=== PATIENT | female | born 1995 | race Caucasian/White ===

== ENCOUNTER 2020-09-27 15:09 | Inpatient (IN) | payer OTHER ==
[2020-09-27] MEDS ORDERED: Citric Acid/Sodium Citrate Solution 30 ML Cup PO ONE (16:27)
[2020-09-27] MEDS ORDERED: Metoclopramide 10 MG/2 ML SDV IVPUSH ONE (16:27)
[2020-09-27] MEDS ORDERED: Sodium Chloride 0.9% 10 ML Syringe FLUSH PRN (16:27)
[2020-09-27] MEDS ORDERED: ceFAZolin 2 GM in Premix Bag 1 BAG IV ONE (16:27)
[2020-09-27] MEDS ORDERED: Lactated Ringers 1,000 ML IV SCH (16:30)
[2020-09-27] MEDS ORDERED: Metoclopramide 10 MG/2 ML SDV ONE (16:31)
--- NOTE | 2020-09-27 16:39 | PCM.PREANE ---
Preanesthetic Assessment - Procedure Proposed Procedure: Csection - Anesthesia/Transfusion/Family Hx Anesthesia History: Prior Anesthesia Without Reaction Family History of Anesthesia Reaction: No Transfusion History: No Prior Transfusion(s) Intubation History: Unknown - Review of Systems General: No Symptoms Pulmonary: No Symptoms Cardiovascular: No Symptoms Gastrointestinal: No Symptoms (GERD) Neurological: No Symptoms, Seizure (childhood) Other: Reports: Easy Bruising, Diabetes (1245 Blood sugar=89), Depression - Physical Assessment NPO Status Date: 09/27/20 NPO Status Time: 13:00 Vital Signs: HR: 93 Sat: 99% B/P: 116/73 Temp: 97.2 Resp: 20 Height: 1.7 m Weight: 87.09 kg ASA Class: 2E Mental Status: Alert & Oriented x3 Airway Class: Mallampati = 2 Dentition: Reports: Normal Dentition, Caries Thyro-Mental Finger Breadths: 3 Mouth Opening Finger Breadths: 3 ROM/Head Extension: Full Lungs: Clear to Auscultation, Normal Respiratory Effort Cardiovascular: Regular Rate, Regular Rhythm, No Murmurs - Allergies Allergies/Adverse Reactions: Allergies Allergy/AdvReac Type Severity Reaction Status Date / Time No Known Allergies Allergy Verified 09/27/20 15:56 - Anesthesia Plan Pre-Op Medication Ordered: None - Acknowledgements Anesthesia Type Planned: Epidural Pt an Appropriate Candidate for the Planned Anesthesia: Yes Alternatives and Risks of Anesthesia Discussed w Pt/Guardian: Yes Pt/Guardian Understands and Agrees with Anesthesia Plan: Yes PreAnesthesia Questionnaire - HOME MEDS Home Medications: Home Meds Insulin Glarg,Human.Rec.Analog [Lantus] 5 unit SUBCUT ACBREAKFAST 09/27/20 [History] Insulin Glarg,Human.Rec.Analog [Lantus] 38 unit SUBCUT BEDTIME 09/27/20 [History] Sertraline [Zoloft] 50 mg PO DAILY 09/27/20 [History] - CURRENT (IN HOUSE) MEDS Current Meds: Current Medications Lactated Ringer's (Ringers, Lactated) 1,000 mls @ 125 mls/hr IV ASDIRECTED [facility] Cefazolin Sodium/Dextrose 2 gm (/ Premix) 50 mls @ 100 mls/hr IV ONETIME ONE Stop: 09/27/20 16:56 Sodium Chloride (Sodium Chloride 0.9% 10 Ml Syringe) 10 ml FLUSH ASDIRECTED PRN PRN Reason: Keep Vein Open Discontinued Medications Citric Acid/Sodium Citrate (Citric Acid/Sodium Citrate Solution 30 Ml Cup) 30 ml PO ONETIME ONE Stop: 09/27/20 16:28 Metoclopramide HCl (Metoclopramide 10 Mg/2 Ml Sdv) 10 mg IVPUSH ONETIME ONE Stop: 09/27/20 16:28 Metoclopramide HCl (Metoclopramide 10 Mg/2 Ml Sdv) Confirm Administered Dose 10 mg .ROUTE .STK-MED ONE Stop: 09/27/20 16:32
[2020-09-27] MEDS ORDERED: Morphine PF 10 MG/10 ML SDV ONE (16:48)
[2020-09-27] MEDS ORDERED: Lactated Ringers 2,000 ML ONE (16:48)
[2020-09-27] MEDS ORDERED: Ondansetron 4 MG/2 ML SDV ONE (16:48)
[2020-09-27] MEDS ORDERED: Ketorolac 30 MG/ML SDV ONE (16:48)
[2020-09-27] MEDS ORDERED: Oxytocin 10 Units/1 ML SDV ONE (16:48)
[2020-09-27] MEDS ORDERED: ceFAZolin 1 GM Vial ONE (16:48)
[2020-09-27] MEDS ORDERED: HYDROmorphone 0.5 MG/0.5 ML Syringe IVPUSH PRN (16:58)
[2020-09-27] MEDS ORDERED: ePHEDrine 50 MG/ML SDV IVPUSH PRN ×2 (16:58→20:21)
[2020-09-27] MEDS ORDERED: Ondansetron 4 MG/2 ML SDV IVPUSH PRN (16:58)
[2020-09-27] MEDS ORDERED: diphenhydrAMINE 50 MG/ML SDV IVPUSH PRN ×2 (16:58→20:21)
[2020-09-27] MEDS ORDERED: fentaNYL 100 MCG/2 ML SDV IVPUSH PRN (16:58)
[2020-09-27] MEDS ORDERED: Bupivacaine 0.5% 30 ML SDV ONE (17:15)
--- NOTE | 2020-09-27 17:49 | US ---
Biophysical profile: Multiple real-time images were obtained transabdominally. Comparison: No previous study. Dates: Working JIMBO: 10/24/20, gestational age 36 weeks 1 day Current ultrasound: JIMBO 10/16/20, gestational age 37 weeks 2 days presentation: Cephalic Placenta: Not imaged Amniotic fluid: 9.98 cm Measurements: BPD: 9.06 cm - 36 weeks 5 days Head circumference: 33.31 cm - 38 weeks 0 days Abdominal circumference: 37.55 cm - 37 weeks 3 days Femur length: 7.16 cm - 36 weeks 5 days Estimated weight: 3158 g (6 lbs. 15 oz.), estimated weight at the 81st percentile for age by working JIMBO Heart rate: 144 bpm Cervical length: Not well visualized Biophysical profile: movement 0, breathing movement 0, tone 0, amniotic fluid volume 2 Impression: 1. Single intrauterine fetus currently cephalic in presentation. Dates as noted above. 2. 2 out of 8 on biophysical profile. Diagnostic code #5
--- NOTE | 2020-09-27 18:09 | PCM.POSTAN ---
POST ANESTHESIA ASSESSMENT - MENTAL STATUS Mental Status: Alert - VITAL SIGNS Vital Signs: HR: 78 Sat: 100% Temp: 98.5 Resp: 19 B/P: 115/84 @ 1800 - RESPIRATORY Respiratory Status: Respiratory Rate WNL, Airway Patent, O2 Saturation Stable - CARDIOVASCULAR CV Status: Pulse Rate WNL, Blood Pressure Stable - GASTROINTESTINAL GI Status: No Symptoms - POST OP HYDRATION Hydration Status: Adequate & Stable
--- NOTE | 2020-09-27 19:14 | PCM.LDHP ---
L&D History of Present Illness - General Date of Service: 09/27/20 Admit Problem/Dx: Patient Status Order with Admit Dx/Problem 09/27/20 15:50 Patient Status [ADT] Routine 09/27/20 16:27 Patient Status [ADT] Routine Admission Diagnosis/Problem Admission Diagnosis/Problem 09/27/20 19:09 Renetta is a 3 para 1-0-1-1 female with a 36-week intrauterine admitted for, nonreassuring heart tones per NST done at [facility]. Her present is complicated by a baby with a ventricular septal defect and the patient has a diagnosis of history of 2 diabetes on insulin. 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 A biophysical profile done in labor and delivery showed a score of 2/10. 09/27/20 19:27 Source of Information: Patient History Limitations: Reports: No Limitations - History of Present Illness Introduction:: Renetta is a 3 para 1-0-1-1 female with a 36-week intrauterine admitted for, nonreassuring heart tones per NST done at [facility]. Her present is complicated by a baby with a ventricular septal defect and the patient has a diagnosis of history of 2 diabetes on insulin. 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 A biophysical profile done in labor and delivery showed a score of 2/10. Immediate telephone consultation with maternal- medicine concerning the baby's VSD and MFM recommendation for delivery in [place] indicated that the plan for delivery in [place] was for early echocardiography on the baby and that no problems at the time of were not anticipated. The decision was made to do an emergent section. The procedure, risk, benefits were discussed in detail with the patient. She appeared to understand and wished to proceed. course: Patient was seen initially for this at 7 weeks gestational age. Ultrasound was done early and her dates were determined by a certain last menstrual period starting on 01/18/2020. This is supported by at least 2 ultrasounds. course was relatively unremarkable. Her care was provided in conjunction with maternal- medicineDr. Perez at [facility] in [place]. She made approximately a 29 pound weight gain during the course the . Her vital signs remained stable throughout the and her fundal height growth was appropriate. Patient was on sertraline 50 mg p.o. daily for anxiety. laboratory testing showed blood to be a positive with a negative antibody screen. First hemoglobin was 13.4 and platelets are 179,000. Rubella titer showed positive results. Her syphilis IgG and IgM interpretation was nonreactive. Hepatitis B surface antigen was nonreactive Chlamydia and gonorrhea were not detected. Second trimester hemoglobin was 11.9 g/dL and platelets are 169,000. Her 1 hour glucose was 262 and the diagnosis of type 2 diabetes was made. Patient was started on dietary modification and eventually is on medication including Lantus 36 units nightly and 5 units in the morning followed by insulin lispro (Humalog) insulin 6 units with lunch and 8 units with supper. In the a.m. Her a.m. blood sugars returned less than optimal but other blood sugars were reasonably well controlled. A group B strep screen was negative. genetic screen was negative for trisomy 21, 18 and 13. Allergies: None Medications: 1. Insulin lispro as above 2. Lantus insulin as above 3. Sertraline 50 mg p.o. daily for anxiety 4. vitamins daily Past medical history: 1. Type 2 diabetes complicating Surgical history: Tonsillectomy Family history: Mother and father are alive and well. 1 brother alive and well. Son with seizure disorder felt to be febrile seizures. No anesthesia, bleeding, blood clotting problems noted in the family. Social history: Patient's significant other is Chan. She lives in [place]. She works outside the home. She does not use any significant also alcohol, drugs or tobacco. Review of systems: Patient's main concern at this time is that she is not feeling the baby move. No other pains, evidence of rupture membranes or other problems noted.. Skin: Negative Lungs: No infectious symptoms or shortness of breath Cardiovascular: No chest pain or exercise intolerance GI: Negative : Negative Musculoskeletal: Negative Neurological: Negative In general the patient is well-developed, well-nourished, pleasant female of stated age in no acute distress. Skin is warm dry without lesions. HEENT, neck and back within normal limits. Lungs are clear with good breath sounds in all lung lopez. Cardiovascular exam shows regular and rhythm without murmurs. Abdomen is gravid with fundal height consistent with term . Genital exam was not performed Extremities and neurological exam are grossly within normal limits. - Related Data Allergies/Adverse Reactions: Allergies Allergy/AdvReac Type Severity Reaction Status Date / Time No Known Allergies Allergy Verified 09/27/20 15:56 Home Medications: Home Meds Insulin Glarg,Human.Rec.Analog [Lantus] 5 unit SUBCUT ACBREAKFAST 09/27/20 [History] Insulin Glarg,Human.Rec.Analog [Lantus] 38 unit SUBCUT BEDTIME 09/27/20 [History] Sertraline [Zoloft] 50 mg PO DAILY 09/27/20 [History] H&P Review of Systems - Review of Systems: Review Of Systems: See Below L&D Exam - Exam Exam: See Below - Vital Signs Vital Signs: Last Vital Signs Temp 36.9 C 09/27/20 18:00 Pulse 78 09/27/20 18:00 Resp 17 09/27/20 18:45 BP 120/78 09/27/20 18:45 Pulse Ox 98 09/27/20 18:45 Weight: 87.09 kg - Patient Data Lab Results Last 24 hrs: Laboratory Results - last 24 hr 09/27/20 09/27/20 09/27/20 Range/Units 16:37 16:37 16:43 WBC (3.98-10.04) K/mm3 RBC (3.98-5.22) M/mm3 Hgb (11.2-15.7) gm/dl Hct (34.1-44.9) % MCV (79.4-94.8) fl MCH (25.6-32.2) pg MCHC (32.2-35.5) g/dl RDW Std Deviation (36.4-46.3) fL Plt Count (182-369) K/mm3 MPV (9.4-12.3) fl Neut % (Auto) (34.0-71.1) % Lymph % (Auto) (19.3-51.7) % Rooks % (Auto) (4.7-12.5) % Eos % (Auto) (0.7-5.8) Baso % (Auto) (0.1-1.2) % Neut # (Auto) (1.56-6.13) K/mm3 Lymph # (Auto) (1.18-3.74) K/mm3 Rooks # (Auto) (0.24-0.36) K/mm3 Eos # (Auto) (0.04-0.36) K/mm3 Baso # (Auto) (0.01-0.08) K/mm3 Sodium (136-145) mEq/L Potassium (3.5-5.1) mEq/L Chloride (98-107) mEq/L Carbon Dioxide (21-32) mEq/L Anion Gap (5-15) BUN (7-18) mg/dL Creatinine (0.55-1.02) mg/dL Est Cr Clr Drug Dosing mL/min Estimated GFR (MDRD) (>60) mL/min BUN/Creatinine Ratio (14-18) Glucose (74-106) mg/dL Calcium (8.5-10.1) mg/dL Total Bilirubin (0.2-1.0) mg/dL AST (15-37) U/L ALT (14-59) U/L Alkaline Phosphatase (46-116) U/L Total Protein (6.4-8.2) g/dl Albumin (3.4-5.0) g/dl Globulin gm/dL Albumin/Globulin Ratio (1-2) SARS-CoV-2 RNA (CAMELIA) Negative (NEGATIVE) SARS CoV-2 RNA Rapid CAMELIA Negative (NEGATIVE) Blood Type A POSITIVE Gel Antibody Screen Negative 09/27/20 09/27/20 Range/Units 16:43 16:43 WBC 6.56 (3.98-10.04) K/mm3 RBC 4.11 (3.98-5.22) M/mm3 Hgb 10.6 L (11.2-15.7) gm/dl Hct 34.1 (34.1-44.9) % MCV 83.0 (79.4-94.8) fl MCH 25.8 (25.6-32.2) pg MCHC 31.1 L (32.2-35.5) g/dl RDW Std Deviation 41.1 (36.4-46.3) fL Plt Count 138 L (182-369) K/mm3 MPV 11.6 (9.4-12.3) fl Neut % (Auto) 65.5 (34.0-71.1) % Lymph % (Auto) 25.9 (19.3-51.7) % Rooks % (Auto) 7.3 (4.7-12.5) % Eos % (Auto) 0.5 L (0.7-5.8) Baso % (Auto) 0.3 (0.1-1.2) % Neut # (Auto) 4.30 (1.56-6.13) K/mm3 Lymph # (Auto) 1.70 (1.18-3.74) K/mm3 Rooks # (Auto) 0.48 H (0.24-0.36) K/mm3 Eos # (Auto) 0.03 L (0.04-0.36) K/mm3 Baso # (Auto) 0.02 (0.01-0.08) K/mm3 Sodium 141 (136-145) mEq/L Potassium 3.7 (3.5-5.1) mEq/L Chloride 105 (98-107) mEq/L Carbon Dioxide 23 (21-32) mEq/L Anion Gap 16.7 H (5-15) BUN 9 (7-18) mg/dL Creatinine 0.5 L (0.55-1.02) mg/dL Est Cr Clr Drug Dosing 165.81 mL/min Estimated GFR (MDRD) > 60 (>60) mL/min BUN/Creatinine Ratio 18.0 (14-18) Glucose 116 H (74-106) mg/dL Calcium 8.4 L (8.5-10.1) mg/dL Total Bilirubin 0.2 (0.2-1.0) mg/dL AST 31 (15-37) U/L ALT 32 (14-59) U/L Alkaline Phosphatase 138 H (46-116) U/L Total Protein 6.3 L (6.4-8.2) g/dl Albumin 2.5 L (3.4-5.0) g/dl Globulin 3.8 gm/dL Albumin/Globulin Ratio 0.7 L (1-2) SARS-CoV-2 RNA (CAMELIA) (NEGATIVE) SARS CoV-2 RNA Rapid CAMELIA (NEGATIVE) Blood Type Gel Antibody Screen Result Diagrams: 09/27/20 16:43 09/27/20 16:43 Problem List Initiated/Reviewed/Updated: Yes Orders Last 24hrs: Active Orders 24 hr Category Date Time Status Patient Status Manage Transfer [TRANSFER] Routine ADT 09/27/20 18:01 Active Patient Status [ADT] Routine ADT 09/27/20 16:27 Active Communication Order [RC] ASDIRECTED Care 09/27/20 16:58 Active Communication Order [RC] ROUTINE Care 09/27/20 16:27 Active Non Stress Test [RC] PER UNIT ROUTINE Care 09/27/20 15:50 Active Notify Provider [RC] ASDIRECTED Care 09/27/20 16:58 Active Oxygen Therapy [RC] ASDIRECTED Care 09/27/20 16:58 Active Peripheral IV Care [RC] . DIRECTED Care 09/27/20 16:28 Active Procedure Site Prep Instruct [RC] ASDIRECTED Care 09/27/20 16:27 Active Pulse Oximetry [RC] ASDIRECTED Care 09/27/20 16:58 Active Verify Patient Consent Obtain [RC] PER UNIT ROUTINE Care 09/27/20 16:27 Active Vital Signs [RC] PER UNIT ROUTINE Care 09/27/20 15:50 Active Vital Signs [RC] PFP Care 09/27/20 16:27 Active Vital Signs [RC] Q1H Care 09/27/20 16:58 Active HEP C VIRUS AB [REF] Routine Lab 09/27/20 16:43 Received HEPATITIS C ANTIBODY [CHEM] Stat Lab 09/27/20 16:38 Ordered PATIENT RETYPE [BBK] Routine Lab 09/27/20 18:34 Ordered RAPID PLASMA REAGIN,RPR [CHEM] Routine Lab 09/27/20 16:43 Received HYDROmorphone [Dilaudid] Med 09/27/20 16:58 Active 0.5 mg IVPUSH Q10M PRN Lactated Ringers [Ringers, Lactated] 1,000 ml Med 09/27/20 16:30 Active IV ASDIRECTED Ondansetron [Zofran] Med 09/27/20 16:58 Active 4 mg IVPUSH ONETIME PRN Phenylephrine HCl In 0.9% NaCl [Phenylephrine 1 MG/10 Med 09/27/20 16:58 Activ e ML-NS] 0.1 mg IVPUSH Q10M PRN Sertraline [Zoloft] Med 09/28/20 09:00 Active 50 mg PO DAILY Sodium Chloride 0.9% [Saline Flush] Med 09/27/20 16:27 Active 10 ml FLUSH ASDIRECTED PRN diphenhydrAMINE [Benadryl] Med 09/27/20 16:58 Active 25 mg IVPUSH Q6H PRN ePHEDrine [ePHEDrine sulfate] Med 09/27/20 16:58 Active 5 mg IVPUSH ASDIRECTED PRN fentaNYL [Sublimaze] Med 09/27/20 16:58 Active 50 mcg IVPUSH Q20M PRN Peripheral IV Insertion Adult [OM.PC] Routine Oth 09/27/20 16:27 Ordered Pulse Oximetry Continuous Monitoring [OM.PC] Routine Oth 09/27/20 16:58 Active Schedule Procedure [COMM] Per Unit Routine Oth 09/27/20 16:27 Ordered Resuscitation Status Routine Resus Stat 09/27/20 15:49 Ordered Medication Orders Diphenhydramine HCl (Diphenhydramine 50 Mg/Ml Sdv) 25 mg IVPUSH Q6H PRN PRN Reason: pruritis Stop: 09/27/20 19:30 Ephedrine Sulfate (Ephedrine 50 Mg/Ml Sdv) 5 mg IVPUSH ASDIRECTED PRN PRN Reason: Hypotension Stop: 09/27/20 19:30 Fentanyl (Fentanyl 100 Mcg/2 Ml Sdv) 50 mcg IVPUSH Q20M PRN PRN Reason: Pain Stop: 09/27/20 19:30 Hydromorphone HCl (Hydromorphone 0.5 Mg/0.5 Ml Syringe) 0.5 mg IVPUSH Q10M PRN PRN Reason: Pain (severe 7-10) Stop: 09/27/20 19:30 Lactated Ringer's (Ringers, Lactated) 1,000 mls @ 125 mls/hr IV ASDIRECTED EDY Miscellaneous Medication (Phenylephrine Hcl In 0.9% Nacl 1 Mg/10 Ml Syringe) 0.1 mg IVPUSH Q10M PRN PRN Reason: Hypotension Stop: 09/27/20 19:30 Ondansetron HCl (Ondansetron 4 Mg/2 Ml Sdv) 4 mg IVPUSH ONETIME PRN PRN Reason: Nausea/Vomiting Stop: 09/27/20 19:30 Sertraline HCl (Sertraline 50 Mg Tab) 50 mg PO DAILY EDY Sodium Chloride (Sodium Chloride 0.9% 10 Ml Syringe) 10 ml FLUSH ASDIRECTED PRN PRN Reason: Keep Vein Open Assessment/Plan Comment:: 1. 36-week , nonreassuring heart tones-biophysical profile score 2/10-need for emergent delivery 2. Type 2 diabetes on insulin-fasting blood sugars not well controlled 3. Baby with ventricular septal defectrecommendation was for delivery in [place] to allow for echocardiography to be done shortly after delivery 4. Generally healthy female otherwise. Plan: 1. Emergent sectionprocedure, risk, benefits, potential implications of delaying delivery are all discussed in detail with patient. She appears understand and wishes to proceed. Consent is signed. 2. Laboratory testing consist of CBC, CMP with blood sugar, type and screen, Covid19 testing, RPR. 3. DVT prophylaxis with SCDs 4. Ancef 2 g IV preop for infection prophylaxis 5. PediatricsDrArianna Alcala to be present for delivery 6. Will continue with Lantus 20 units subcu nightly after delivery and monitor blood sugars closely.
--- NOTE | 2020-09-27 19:36 | PCM.OPNOTE ---
- General Post-Op/Procedure Note Date of Surgery/Procedure: 09/27/20 Operative Procedure(s): Primary low uterine segment transverse section through Pfannenstiel skin incision Findings: The baby was found to be in vertex presentation. Uterus, tubes ovaries appeared to be normal for term . Amniotic fluid was clear. Approximately 2000 cc of amniotic fluid was removed consistent with hydramnios. Baby was in vertex presentation. Umbilical cord had 3 vessels. Placenta was fundal and anterior and minimally adherent. Cervix was found to be 3 cm dilated. Baby weighed 3480 g (7 pounds 11 ounces), had Apgars of 6 and 9 and was a male infant. The baby was born at 1720 hrs. on 09/27/2022. Anesthesia Technique: Spinal Other Anesthesia Type: Marcaine 0.5% - 20 cc local Primary Surgeon: Julio Cunningham Secondary Surgeon: Jon Tomas Anesthesia Provider: Odette Maza Evening Sitter: Maggi Saavedra Role of Evening Sitter: Retraction, assistance, patient safety, quality of care. Fluid Replacement, Intraop: 1,100 Output, Urine Amount: 125 EBL in mLs: 1,000 Drain/Tube Comments:: Indwelling bladder catheter Complications: None Condition: Good Free Text/Narrative:: Intake & Output 09/27/20 09/27/20 09/27/20 06:59 14:59 22:59 Intake Total 800 Output Total 185 Balance 615 Surgery duration: 40 minutes Procedure: The patient is appropriately consented. Patient was transferred to the room and placed in a sitting position. Spinal anesthesia was administered. After confirmation of adequate anesthesia patient was placed in a supine position with a wedge under her right side to facilitate left lateral positioning. The patient was prepped and draped in usual fashion after Vazquez catheter was already placed . The anesthetic was checked and found to be adequate. 20 mL of Marcaine 0.5% was injected locally in the Pfannenstiel incision site. The Pfannenstiel skin incision was then made and carried down through skin, subcutaneous and fascial layers. The fascia was then undermined superiorly and inferiorly to allow for adequate operating room. The recti muscles midline and preperitoneal fat was bluntly dissected. Peritoneal cavity was entered longitudinally. The vesicouterine peritoneum was then incised transversely and bladder flap was developed. Myometrium was incised transversely to the level of the amniotic sac. This incision was extended bilaterally in a blunt fashion. The amniotic sac was then ruptured resulting in clear amniotic fluid. A hand is placed in the low uterine segment and the baby's head was brought forth through the incision. The baby was completely delivered using fundal pressure in a routine fashion. The nose and mouth were bulb suctioned. Baby's cord was clamped x2 cut and baby was handed off to attending medical language specialist Dr. Alcala. Placenta was expressed after cord blood was obtained. Uterus was then exteriorized to allow for easier closure. The cervix was assessed and found to be dilated adequately to allow egress of blood. The uterus was closed in 2 layers. The first layer a running locked suture of 0 Monocryl, the second layer a running locked vertical mattress suture of 0 Monocryl. Tahluz-by-[id number] suture was placed at the end of the incision to control 1 bleeder. Cautery was used to control small peritoneal bleeders. Hemostasis was then confirmed. Sponge instrument needle counts are correct. The uterus was returned to the abdominal cavity and lateral gutters were cleared of blood. Once again sponge needle counts are correct. The anterior abdominal wall was closed with a #1 PDS suture from angle to angle. The subcutaneous area was found to be free of any bleeders. interrupted sutures of 3-0 Monocryl were used to reapproxi mate the subcutaneous layer.Skin was closed with a running subcuticular stitch of 3-0 Monocryl in a vertical mattress suture fashion using a Roberto Carlos needle. Prineo mesh/glue was then applied to further approximate the incision. It should be noted that patient received 2 g of Ancef preoperatively for infection prophylaxis and had Pitocin infused after delivery of the placenta to facilitate uterine contraction. She also had sequential compression stockings in place for DVT prophylaxis. Patient was discharged from the operating room in satisfactory condition.
[2020-09-27] MEDS ORDERED: Naloxone 0.4 MG/ML SDV IVPUSH PRN (20:21)
[2020-09-27] MEDS ORDERED: Dextrose 5%-Lactated Ringers 1,000 ML IV SCH (20:21)
[2020-09-27] MEDS ORDERED: Acetaminophen/oxyCODONE 325-5 MG Tab PO PRN ×2 (20:21)
[2020-09-27] MEDS ORDERED: Insulin Glarg,Human.Rec.Analog 100 Unit/ML SUBCUT SCH (21:00)
[2020-09-27] MEDS ORDERED: Simethicone 80 MG Tab.Chew PO SCH (22:00)
[2020-09-27] MEDS: Insulin Glarg,Human.Rec.Analog 100 Unit/ML SUBCUT SCH (23:42)
[2020-09-27] MEDS: Ibuprofen 800 MG Tab PO SCH (23:48)
[2020-09-28] MEDS: Ibuprofen 800 MG Tab PO SCH ×3 (06:51→23:12)
[2020-09-28] MEDS ORDERED: Sertraline 50 MG Tab PO SCH ×2 (09:00)
[2020-09-28] MEDS ORDERED: Prenatal Multivitamin with Calcium/Folic Acid/Iron Tab PO SCH (09:00)
[2020-09-28] MEDS: Docusate Sodium 100 MG Cap PO PRN ×2 (09:07→23:12)
--- NOTE | 2020-09-28 10:18 | PCM.PNPP ---
- General Info Date of Service: 09/28/20 Subjective Update: Doing well. Eager to get to [place]. Hasn't been up and out of bed more than once to void however. Functional Status: Reports: Pain Controlled - Review of Systems General: Reports: No Symptoms HEENT: Reports: No Symptoms Pulmonary: Reports: No Symptoms Cardiovascular: Reports: No Symptoms Gastrointestinal: Reports: No Symptoms Genitourinary: Reports: No Symptoms Musculoskeletal: Reports: No Symptoms Skin: Reports: No Symptoms Neurological: Reports: No Symptoms Psychiatric: Reports: No Symptoms - General Info Date of Service: 09/28/20 - Patient Data Vital Signs - Most Recent: Last Vital Signs Temp 37.1 C 09/28/20 07:47 Pulse 85 09/28/20 07:47 Resp 16 09/28/20 07:47 BP 109/63 09/28/20 07:47 Pulse Ox 98 09/28/20 07:47 Weight - Most Recent: 87.09 kg I&O - Last 24 Hours: Intake & Output 09/27/20 09/28/20 09/28/20 22:59 06:59 14:59 Intake Total 1900 1000 Output Total 960 2500 450 Balance 940 -1500 -450 Lab Results - Last 24 Hours: Laboratory Results - last 24 hr 09/27/20 09/27/20 09/27/20 Range/Units 16:37 16:37 16:43 WBC (3.98-10.04) K/mm3 RBC (3.98-5.22) M/mm3 Hgb (11.2-15.7) gm/dl Hct (34.1-44.9) % MCV (79.4-94.8) fl MCH (25.6-32.2) pg MCHC (32.2-35.5) g/dl RDW Std Deviation (36.4-46.3) fL Plt Count (182-369) K/mm3 MPV (9.4-12.3) fl Neut % (Auto) (34.0-71.1) % Lymph % (Auto) (19.3-51.7) % [place] % (Auto) (4.7-12.5) % Eos % (Auto) (0.7-5.8) Baso % (Auto) (0.1-1.2) % Neut # (Auto) (1.56-6.13) K/mm3 Lymph # (Auto) (1.18-3.74) K/mm3 [place] # (Auto) (0.24-0.36) K/mm3 Eos # (Auto) (0.04-0.36) K/mm3 Baso # (Auto) (0.01-0.08) K/mm3 Sodium (136-145) mEq/L Potassium (3.5-5.1) mEq/L Chloride (98-107) mEq/L Carbon Dioxide (21-32) mEq/L Anion Gap (5-15) BUN (7-18) mg/dL Creatinine (0.55-1.02) mg/dL Est Cr Clr Drug Dosing mL/min Estimated GFR (MDRD) (>60) mL/min BUN/Creatinine Ratio (14-18) Glucose (74-106) mg/dL POC Glucose (70-105) mg/dL Calcium (8.5-10.1) mg/dL Total Bilirubin (0.2-1.0) mg/dL AST (15-37) U/L ALT (14-59) U/L Alkaline Phosphatase (46-116) U/L Total Protein (6.4-8.2) g/dl Albumin (3.4-5.0) g/dl Globulin gm/dL Albumin/Globulin Ratio (1-2) RPR Non-reactive (NONREACTIVE) SARS-CoV-2 RNA ([place]) Negative (NEGATIVE) SARS CoV-2 RNA Rapid [place] Negative (NEGATIVE) Blood Type Gel Antibody Screen 09/27/20 09/27/20 09/27/20 Range/Units 16:43 16:43 16:43 WBC 6.56 (3.98-10.04) K/mm3 RBC 4.11 (3.98-5.22) M/mm3 Hgb 10.6 L (11.2-15.7) gm/dl Hct 34.1 (34.1-44.9) % MCV 83.0 (79.4-94.8) fl MCH 25.8 (25.6-32.2) pg MCHC 31.1 L (32.2-35.5) g/dl RDW Std Deviation 41.1 (36.4-46.3) fL Plt Count 138 L (182-369) K/mm3 MPV 11.6 (9.4-12.3) fl Neut % (Auto) 65.5 (34.0-71.1) % Lymph % (Auto) 25.9 (19.3-51.7) % [place] % (Auto) 7.3 (4.7-12.5) % Eos % (Auto) 0.5 L (0.7-5.8) Baso % (Auto) 0.3 (0.1-1.2) % Neut # (Auto) 4.30 (1.56-6.13) K/mm3 Lymph # (Auto) 1.70 (1.18-3.74) K/mm3 [place] # (Auto) 0.48 H (0.24-0.36) K/mm3 Eos # (Auto) 0.03 L (0.04-0.36) K/mm3 Baso # (Auto) 0.02 (0.01-0.08) K/mm3 Sodium 141 (136-145) mEq/L Potassium 3.7 (3.5-5.1) mEq/L Chloride 105 (98-107) mEq/L Carbon Dioxide 23 (21-32) mEq/L Anion Gap 16.7 H (5-15) BUN 9 (7-18) mg/dL Creatinine 0.5 L (0.55-1.02) mg/dL Est Cr Clr Drug Dosing 165.81 mL/min Estimated GFR (MDRD) > 60 (>60) mL/min BUN/Creatinine Ratio 18.0 (14-18) Glucose 116 H (74-106) mg/dL POC Glucose (70-105) mg/dL Calcium 8.4 L (8.5-10.1) mg/dL Total Bilirubin 0.2 (0.2-1.0) mg/dL AST 31 (15-37) U/L ALT 32 (14-59) U/L Alkaline Phosphatase 138 H (46-116) U/L Total Protein 6.3 L (6.4-8.2) g/dl Albumin 2.5 L (3.4-5.0) g/dl Globulin 3.8 gm/dL Albumin/Globulin Ratio 0.7 L (1-2) RPR (NONREACTIVE) SARS-CoV-2 RNA ([place]) (NEGATIVE) SARS CoV-2 RNA Rapid [place] (NEGATIVE) Blood Type A POSITIVE Gel Antibody Screen Negative 09/27/20 09/27/20 09/28/20 Range/Units 21:56 23:34 06:32 WBC 6.77 (3.98-10.04) K/mm3 RBC 3.69 L (3.98-5.22) M/mm3 Hgb 9.3 L (11.2-15.7) gm/dl Hct 30.8 L (34.1-44.9) % MCV 83.5 (79.4-94.8) fl MCH 25.2 L (25.6-32.2) pg MCHC 30.2 L (32.2-35.5) g/dl RDW Std Deviation 41.3 (36.4-46.3) fL Plt Count 133 L (182-369) K/mm3 MPV 12.2 (9.4-12.3) fl Neut % (Auto) 71.8 H (34.0-71.1) % Lymph % (Auto) 20.1 (19.3-51.7) % [place] % (Auto) 7.2 (4.7-12.5) % Eos % (Auto) 0.3 L (0.7-5.8) Baso % (Auto) 0.3 (0.1-1.2) % Neut # (Auto) 4.86 (1.56-6.13) K/mm3 Lymph # (Auto) 1.36 (1.18-3.74) K/mm3 [place] # (Auto) 0.49 H (0.24-0.36) K/mm3 Eos # (Auto) 0.02 L (0.04-0.36) K/mm3 Baso # (Auto) 0.02 (0.01-0.08) K/mm3 Sodium (136-145) mEq/L Potassium (3.5-5.1) mEq/L Chloride (98-107) mEq/L Carbon Dioxide (21-32) mEq/L Anion Gap (5-15) BUN (7-18) mg/dL Creatinine (0.55-1.02) mg/dL Est Cr Clr Drug Dosing mL/min Estimated GFR (MDRD) (>60) mL/min BUN/Creatinine Ratio (14-18) Glucose (74-106) mg/dL POC Glucose 91 124 H (70-105) mg/dL Calcium (8.5-10.1) mg/dL Total Bilirubin (0.2-1.0) mg/dL AST (15-37) U/L ALT (14-59) U/L Alkaline Phosphatase (46-116) U/L Total Protein (6.4-8.2) g/dl Albumin (3.4-5.0) g/dl Globulin gm/dL Albumin/Globulin Ratio (1-2) RPR (NONREACTIVE) SARS-CoV-2 RNA ([place]) (NEGATIVE) SARS CoV-2 RNA Rapid [place] (NEGATIVE) Blood Type Gel Antibody Screen 09/28/20 Range/Units 07:36 WBC (3.98-10.04) K/mm3 RBC (3.98-5.22) M/mm3 Hgb (11.2-15.7) gm/dl Hct (34.1-44.9) % MCV (79.4-94.8) fl MCH (25.6-32.2) pg MCHC (32.2-35.5) g/dl RDW Std Deviation (36.4-46.3) fL Plt Count (182-369) K/mm3 MPV (9.4-12.3) fl Neut % (Auto) (34.0-71.1) % Lymph % (Auto) (19.3-51.7) % [place] % (Auto) (4.7-12.5) % Eos % (Auto) (0.7-5.8) Baso % (Auto) (0.1-1.2) % Neut # (Auto) (1.56-6.13) K/mm3 Lymph # (Auto) (1.18-3.74) K/mm3 [place] # (Auto) (0.24-0.36) K/mm3 Eos # (Auto) (0.04-0.36) K/mm3 Baso # (Auto) (0.01-0.08) K/mm3 Sodium (136-145) mEq/L Potassium (3.5-5.1) mEq/L Chloride (98-107) mEq/L Carbon Dioxide (21-32) mEq/L Anion Gap (5-15) BUN (7-18) mg/dL Creatinine (0.55-1.02) mg/dL Est Cr Clr Drug Dosing mL/min Estimated GFR (MDRD) (>60) mL/min BUN/Creatinine Ratio (14-18) Glucose (74-106) mg/dL POC Glucose 91 (70-105) mg/dL Calcium (8.5-10.1) mg/dL Total Bilirubin (0.2-1.0) mg/dL AST (15-37) U/L ALT (14-59) U/L Alkaline Phosphatase (46-116) U/L Total Protein (6.4-8.2) g/dl Albumin (3.4-5.0) g/dl Globulin gm/dL Albumin/Globulin Ratio (1-2) RPR (NONREACTIVE) SARS-CoV-2 RNA ([place]) (NEGATIVE) SARS CoV-2 RNA Rapid [place] (NEGATIVE) Blood Type Gel Antibody Screen Med Orders - Current: Current Medications Diphenhydramine HCl (Diphenhydramine 50 Mg/Ml Sdv) 25 mg IVPUSH Q6H PRN PRN Reason: Itching or Nausea Last Admin: 09/28/20 02:27 Dose: 25 mg Documented by: Docusate Sodium (Docusate Sodium 100 Mg Cap) 100 mg PO Q12H PRN PRN Reason: Constipation Last Admin: 09/28/20 09:07 Dose: 100 mg Documented by: Ephedrine Sulfate (Ephedrine 50 Mg/Ml Sdv) 5 mg IVPUSH SEECOMMENT PRN PRN Reason: Other Ibuprofen (Ibuprofen 800 Mg Tab) 800 mg PO Q8H [facility] Last Admin: 09/28/20 06:51 Dose: 800 mg Documented by: Insulin Glargine (Insulin Glarg,Human.Rec.Analog 100 Unit/Ml) 20 unit SUBCUT BEDTIME [facility] Last Admin: 09/27/20 23:42 Dose: 20 units Documented by: Naloxone HCl (Naloxone 0.4 Mg/Ml Sdv) 0.1 mg IVPUSH SEECOMMENT PRN PRN Reason: Respiratory Depression Oxycodone/Acetaminophen (Acetaminophen/Oxycodone 325-5 Mg Tab) 1 tab PO Q4H PRN PRN Reason: Pain (moderate 4-6) Oxycodone/Acetaminophen (Acetaminophen/Oxycodone 325-5 Mg Tab) 2 tab PO Q4H PRN PRN Reason: Pain (severe 7-10) Prenat Multivit/Textile Machinery Instructor/Iron/Folic Ac ( Multivitamin With Calcium/Folic Acid/Iron Tab) 1 each PO DAILY [facility] Last Admin: 09/28/20 09:07 Dose: 1 each Documented by: Sertraline HCl (Sertraline 50 Mg Tab) 50 mg PO DAILY [facility] Last Admin: 09/28/20 09:07 Dose: 50 mg Documented by: Simethicone (Simethicone 80 Mg Tab.Chew) 80 mg PO WITHMEALSANDBED [facility] Discontinued Medications Bupivacaine HCl (Bupivacaine 0.5% 30 Ml Sdv) Confirm Administered Dose 30 ml .ROUTE .STK-MED ONE Stop: 09/27/20 17:16 Last Admin: 09/27/20 17:16 Dose: 20 ml Documented by: Cefazolin Sodium (Cefazolin 1 Gm Vial) Confirm Administered Dose 2 gm .ROUTE .STK-MED ONE Stop: 09/27/20 16:49 Citric Acid/Sodium Citrate (Citric Acid/Sodium Citrate Solution 30 Ml Cup) 30 ml PO ONETIME ONE Stop: 09/27/20 16:28 Last Admin: 09/27/20 16:47 Dose: 30 ml Documented by: Diphenhydramine HCl (Diphenhydramine 50 Mg/Ml Sdv) 25 mg IVPUSH Q6H PRN PRN Reason: pruritis Stop: 09/27/20 19:30 Last Admin: 09/27/20 19:08 Dose: 25 mg Documented by: Ephedrine Sulfate (Ephedrine 50 Mg/Ml Sdv) 5 mg IVPUSH ASDIRECTED PRN PRN Reason: Hypotension Stop: 09/27/20 19:30 Fentanyl (Fentanyl 100 Mcg/2 Ml Sdv) 50 mcg IVPUSH Q20M PRN PRN Reason: Pain Stop: 09/27/20 19:30 Hydromorphone HCl (Hydromorphone 0.5 Mg/0.5 Ml Syringe) 0.5 mg IVPUSH Q10M PRN PRN Reason: Pain (severe 7-10) Stop: 09/27/20 19:30 Lactated Ringer's (Ringers, Lactated) 1,000 mls @ 125 mls/hr IV ASDIRECTED [facility] Last Admin: 09/27/20 16:30 Dose: 500 mls/hr Documented by: Cefazolin Sodium/Dextrose 2 gm (/ Premix) 50 mls @ 100 mls/hr IV ONETIME ONE Stop: 09/27/20 16:56 Last Admin: 09/27/20 21:09 Dose: Not Given Documented by: Lactated Ringer's (Ringers, Lactated) Confirm Administered Dose 2,000 mls @ as directed .ROUTE .STK-MED ONE Stop: 09/27/20 16:49 Dextrose/Lactated Ringer's (Dextrose 5%-Lactated Ringers) 1,000 mls @ 125 mls/hr IV ASDIRECTED [facility] Stop: 09/28/20 04:20 Ketorolac Tromethamine (Ketorolac 30 Mg/Ml Sdv) Confirm Administered Dose 30 mg .ROUTE .STK-MED ONE Stop: 09/27/20 16:49 Metoclopramide HCl (Metoclopramide 10 Mg/2 Ml Sdv) 10 mg IVPUSH ONETIME ONE Stop: 09/27/20 16:28 Last Admin: 09/27/20 16:45 Dose: 10 mg Documented by: Metoclopramide HCl (Metoclopramide 10 Mg/2 Ml Sdv) Confirm Administered Dose 10 mg .ROUTE .STK-MED ONE Stop: 09/27/20 16:32 Last Admin: 09/27/20 21:09 Dose: Not Given Documented by: Miscellaneous Medication (Phenylephrine Hcl In 0.9% Nacl 1 Mg/10 Ml Syringe) Confirm Administered Dose 1 mg .ROUTE .STK-MED ONE Stop: 09/27/20 16:49 Miscellaneous Medication (Phenylephrine Hcl In 0.9% Nacl 1 Mg/10 Ml Syringe) 0.1 mg IVPUSH Q10M PRN PRN Reason: Hypotension Stop: 09/27/20 19:30 Morphine Sulfate (Morphine Pf 10 Mg/10 Ml Sdv) Confirm Administered Dose 10 mg .ROUTE .STK-MED ONE Stop: 09/27/20 16:49 Ondansetron HCl (Ondansetron 4 Mg/2 Ml Sdv) Confirm Administered Dose 4 mg .ROUTE .STK-MED ONE Stop: 09/27/20 16:49 Ondansetron HCl (Ondansetron 4 Mg/2 Ml Sdv) 4 mg IVPUSH ONETIME PRN PRN Reason: Nausea/Vomiting Stop: 09/27/20 19:30 Oxytocin (Oxytocin 10 Units/1 Ml Sdv) Confirm Administered Dose 20 unit .ROUTE .STK-MED ONE Stop: 09/27/20 16:49 Sertraline HCl (Sertraline 50 Mg Tab) 50 mg PO DAILY [facility] Sodium Chloride (Sodium Chloride 0.9% 10 Ml Syringe) 10 ml FLUSH ASDIRECTED PRN PRN Reason: Keep Vein Open - Infant Interaction Support Person: - Recovery Exam Fundal Tone: Firm Fundal Level: 1 Fingerbreadths Below Umbilicus Fundal Placement: Midline Lochia Amount: Small Lochia Color: Rubra/Red Perineum Description: Intact, Minimal Bruising/Swelling Episiotomy/Laceration: None Bladder Status: Indwelling Catheter in Place Urinary Elimination: Indwelling Catheter - Exam General: Alert, Oriented HEENT: Pupils Equal Neck: Supple Lungs: Clear to Auscultation, Normal Respiratory Effort Cardiovascular: Regular Rate, Regular Rhythm GI/Abdominal Exam: Normal Bowel Sounds, Soft, Non-Tender, No Organomegaly, No Distention, No Abnormal Bruit, No Mass, Pelvis Stable Extremities: Non-Tender Skin: Warm, Dry, Intact Wound/Incisions: Healing Well Neurological: No New Focal Deficit Psy/Mental Status: Alert, Normal Affect, Normal Mood - Problem List Review Problem List Initiated/Reviewed/Updated: Yes - Assessment Assessment:: No complaints. Likely to [place] tomorrow. Patient eager to go but is ok staying until morning. - Plan Plan:: 1. 36-week , nonreassuring heart tones-biophysical profile score 2/10-need for emergent delivery 2. Type 2 diabetes on insulin-fasting blood sugars not well controlled 3. Baby with ventricular septal defectrecommendation was for delivery in [place] to allow for echocardiography to be done shortly after delivery 4. Generally healthy female otherwise. Plan: 1. Doing well 2. Home tomorrow.
[2020-09-28] MEDS ORDERED: Simethicone 80 MG Tab.Chew PO SCH (22:00)
[2020-09-28] MEDS: Insulin Glarg,Human.Rec.Analog 100 Unit/ML SUBCUT SCH (22:18)
[2020-09-29] MEDS: Ibuprofen 800 MG Tab PO SCH (06:55)
--- NOTE | 2020-09-29 06:56 | PCM.PNPP ---
- General Info Date of Service: 09/29/20 Functional Status: Reports: Pain Controlled, Tolerating Diet, Ambulating, Urinating - Review of Systems General: Reports: No Symptoms Pulmonary: Reports: No Symptoms Cardiovascular: Reports: No Symptoms Gastrointestinal: Reports: Abdominal Pain (managed well with medications ) Genitourinary: Reports: No Symptoms Musculoskeletal: Reports: No Symptoms Neurological: Reports: No Symptoms - Patient Data Vital Signs - Most Recent: Last Vital Signs Temp 36.0 C L 09/29/20 03:06 Pulse 69 09/29/20 03:06 Resp 14 09/29/20 03:06 BP 104/74 09/29/20 03:06 Pulse Ox 98 09/29/20 03:06 Weight - Most Recent: 87.09 kg I&O - Last 24 Hours: Intake & Output 09/28/20 09/28/20 09/29/20 14:59 22:59 06:59 Intake Total 980 880 Output Total 1200 500 Balance -220 380 Lab Results - Last 24 Hours: Laboratory Results - last 24 hr 09/28/20 09/28/20 09/28/20 Range/Units 06:32 07:36 11:33 WBC 6.77 (3.98-10.04) K/mm3 RBC 3.69 L (3.98-5.22) M/mm3 Hgb 9.3 L (11.2-15.7) gm/dl Hct 30.8 L (34.1-44.9) % MCV 83.5 (79.4-94.8) fl MCH 25.2 L (25.6-32.2) pg MCHC 30.2 L (32.2-35.5) g/dl RDW Std Deviation 41.3 (36.4-46.3) fL Plt Count 133 L (182-369) K/mm3 MPV 12.2 (9.4-12.3) fl Neut % (Auto) 71.8 H (34.0-71.1) % Lymph % (Auto) 20.1 (19.3-51.7) % [place] % (Auto) 7.2 (4.7-12.5) % Eos % (Auto) 0.3 L (0.7-5.8) Baso % (Auto) 0.3 (0.1-1.2) % Neut # (Auto) 4.86 (1.56-6.13) K/mm3 Lymph # (Auto) 1.36 (1.18-3.74) K/mm3 [place] # (Auto) 0.49 H (0.24-0.36) K/mm3 Eos # (Auto) 0.02 L (0.04-0.36) K/mm3 Baso # (Auto) 0.02 (0.01-0.08) K/mm3 POC Glucose 91 141 H (70-105) mg/dL 09/28/20 09/28/20 Range/Units 17:07 22:17 WBC (3.98-10.04) K/mm3 RBC (3.98-5.22) M/mm3 Hgb (11.2-15.7) gm/dl Hct (34.1-44.9) % MCV (79.4-94.8) fl MCH (25.6-32.2) pg MCHC (32.2-35.5) g/dl RDW Std Deviation (36.4-46.3) fL Plt Count (182-369) K/mm3 MPV (9.4-12.3) fl Neut % (Auto) (34.0-71.1) % Lymph % (Auto) (19.3-51.7) % [place] % (Auto) (4.7-12.5) % Eos % (Auto) (0.7-5.8) Baso % (Auto) (0.1-1.2) % Neut # (Auto) (1.56-6.13) K/mm3 Lymph # (Auto) (1.18-3.74) K/mm3 [place] # (Auto) (0.24-0.36) K/mm3 Eos # (Auto) (0.04-0.36) K/mm3 Baso # (Auto) (0.01-0.08) K/mm3 POC Glucose 112 H 143 H (70-105) mg/dL Med Orders - Current: Current Medications Diphenhydramine HCl (Diphenhydramine 50 Mg/Ml Sdv) 25 mg IVPUSH Q6H PRN PRN Reason: Itching or Nausea Last Admin: 09/28/20 02:27 Dose: 25 mg Documented by: Docusate Sodium (Docusate Sodium 100 Mg Cap) 100 mg PO Q12H PRN PRN Reason: Constipation Last Admin: 09/28/20 23:12 Dose: 100 mg Documented by: Ephedrine Sulfate (Ephedrine 50 Mg/Ml Sdv) 5 mg IVPUSH SEECOMMENT PRN PRN Reason: Other Ibuprofen (Ibuprofen 800 Mg Tab) 800 mg PO Q8H [facility] Last Admin: 09/29/20 06:55 Dose: 800 mg Documented by: Insulin Glargine (Insulin Glarg,Human.Rec.Analog 100 Unit/Ml) 20 unit SUBCUT BEDTIME [facility] Last Admin: 09/28/20 22:18 Dose: 20 units Documented by: Naloxone HCl (Naloxone 0.4 Mg/Ml Sdv) 0.1 mg IVPUSH SEECOMMENT PRN PRN Reason: Respiratory Depression Oxycodone/Acetaminophen (Acetaminophen/Oxycodone 325-5 Mg Tab) 1 tab PO Q4H PRN PRN Reason: Pain (moderate 4-6) Last Admin: 09/28/20 12:49 Dose: 1 tab Documented by: Oxycodone/Acetaminophen (Acetaminophen/Oxycodone 325-5 Mg Tab) 2 tab PO Q4H PRN PRN Reason: Pain (severe 7-10) Last Admin: 09/29/20 04:36 Dose: 2 tab Documented by: Prenat Multivit/Ballet Dancer/Iron/Folic Ac ( Multivitamin With Calcium/Folic Acid/Iron Tab) 1 each PO DAILY [facility] Last Admin: 09/28/20 09:07 Dose: 1 each Documented by: Sertraline HCl (Sertraline 50 Mg Tab) 50 mg PO DAILY [facility] Last Admin: 09/28/20 09:07 Dose: 50 mg Documented by: Simethicone (Simethicone 80 Mg Tab.Chew) 80 mg PO QIDPCANDBED [facility] Last Admin: 09/28/20 22:17 Dose: 80 mg Documented by: Discontinued Medications Bupivacaine HCl (Bupivacaine 0.5% 30 Ml Sdv) Confirm Administered Dose 30 ml .ROUTE .STK-MED ONE Stop: 09/27/20 17:16 Last Admin: 09/27/20 17:16 Dose: 20 ml Documented by: Cefazolin Sodium (Cefazolin 1 Gm Vial) Confirm Administered Dose 2 gm .ROUTE .STK-MED ONE Stop: 09/27/20 16:49 Citric Acid/Sodium Citrate (Citric Acid/Sodium Citrate Solution 30 Ml Cup) 30 ml PO ONETIME ONE Stop: 09/27/20 16:28 Last Admin: 09/27/20 16:47 Dose: 30 ml Documented by: Diphenhydramine HCl (Diphenhydramine 50 Mg/Ml Sdv) 25 mg IVPUSH Q6H PRN PRN Reason: pruritis Stop: 09/27/20 19:30 Last Admin: 09/27/20 19:08 Dose: 25 mg Documented by: Ephedrine Sulfate (Ephedrine 50 Mg/Ml Sdv) 5 mg IVPUSH ASDIRECTED PRN PRN Reason: Hypotension Stop: 09/27/20 19:30 Fentanyl (Fentanyl 100 Mcg/2 Ml Sdv) 50 mcg IVPUSH Q20M PRN PRN Reason: Pain Stop: 09/27/20 19:30 Hydromorphone HCl (Hydromorphone 0.5 Mg/0.5 Ml Syringe) 0.5 mg IVPUSH Q10M PRN PRN Reason: Pain (severe 7-10) Stop: 09/27/20 19:30 Lactated Ringer's (Ringers, Lactated) 1,000 mls @ 125 mls/hr IV ASDIRECTED [facility] Last Admin: 09/27/20 16:30 Dose: 500 mls/hr Documented by: Cefazolin Sodium/Dextrose 2 gm (/ Premix) 50 mls @ 100 mls/hr IV ONETIME ONE Stop: 09/27/20 16:56 Last Admin: 09/27/20 21:09 Dose: Not Given Documented by: Lactated Ringer's (Ringers, Lactated) Confirm Administered Dose 2,000 mls @ as directed .ROUTE .STK-MED ONE Stop: 09/27/20 16:49 Dextrose/Lactated Ringer's (Dextrose 5%-Lactated Ringers) 1,000 mls @ 125 mls/hr IV ASDIRECTED [facility] Stop: 09/28/20 04:20 Ketorolac Tromethamine (Ketorolac 30 Mg/Ml Sdv) Confirm Administered Dose 30 mg .ROUTE .STK-MED ONE Stop: 09/27/20 16:49 Metoclopramide HCl (Metoclopramide 10 Mg/2 Ml Sdv) 10 mg IVPUSH ONETIME ONE Stop: 09/27/20 16:28 Last Admin: 09/27/20 16:45 Dose: 10 mg Documented by: Metoclopramide HCl (Metoclopramide 10 Mg/2 Ml Sdv) Confirm Administered Dose 10 mg .ROUTE .STK-MED ONE Stop: 09/27/20 16:32 Last Admin: 09/27/20 21:09 Dose: Not Given Documented by: Miscellaneous Medication (Phenylephrine Hcl In 0.9% Nacl 1 Mg/10 Ml Syringe) Confirm Administered Dose 1 mg .ROUTE .STK-MED ONE Stop: 09/27/20 16:49 Miscellaneous Medication (Phenylephrine Hcl In 0.9% Nacl 1 Mg/10 Ml Syringe) 0.1 mg IVPUSH Q10M PRN PRN Reason: Hypotension Stop: 09/27/20 19:30 Morphine Sulfate (Morphine Pf 10 Mg/10 Ml Sdv) Confirm Administered Dose 10 mg .ROUTE .STK-MED ONE Stop: 09/27/20 16:49 Ondansetron HCl (Ondansetron 4 Mg/2 Ml Sdv) Confirm Administered Dose 4 mg .ROUTE .STK-MED ONE Stop: 09/27/20 16:49 Ondansetron HCl (Ondansetron 4 Mg/2 Ml Sdv) 4 mg IVPUSH ONETIME PRN PRN Reason: Nausea/Vomiting Stop: 09/27/20 19:30 Oxytocin (Oxytocin 10 Units/1 Ml Sdv) Confirm Administered Dose 20 unit .ROUTE .STK-MED ONE Stop: 09/27/20 16:49 Sertraline HCl (Sertraline 50 Mg Tab) 50 mg PO DAILY [facility] Simethicone (Simethicone 80 Mg Tab.Chew) 80 mg PO WITHMEALSANDBED [facility] Sodium Chloride (Sodium Chloride 0.9% 10 Ml Syringe) 10 ml FLUSH ASDIRECTED PRN PRN Reason: Keep Vein Open - Interaction Disposition, : Not Applicable ( in NICU in [place]) Infant Feeding: Other (see below) (Pumping ) Support Person: - Recovery Exam Fundal Tone: Firm Fundal Level: 1 Fingerbreadths Below Umbilicus Fundal Placement: Midline Lochia Amount: Scant Lochia Color: Rubra/Red Perineum Description: Intact, Minimal Bruising/Swelling Episiotomy/Laceration: None Bladder Status: Voiding Urinary Elimination: Voided - Exam General: Alert, Oriented, Cooperative Lungs: Clear to Auscultation, Normal Respiratory Effort Cardiovascular: Regular Rate, Regular Rhythm GI/Abdominal Exam: Soft, Tender (appropriate post op) Extremities: Normal Inspection Skin: Warm, Dry, Intact Wound/Incisions: Healing Well, No Drainage - Problem List & Annotations (1) 36 weeks gestation of SNOMED Code(s): 07702045 Code(s): Z3A.36 - 36 WEEKS GESTATION OF Status: Acute (2) Type 2 diabetes mellitus affecting in third trimester, antepartum SNOMED Code(s): 156022705, 531490921, 875149042 Code(s): O24.113 - PRE-EXISTING TYPE 2 DIABETES, IN , THIRD TRIMESTER Status: Acute (3) Non-reassuring heart rate or rhythm affecting management of mother SNOMED Code(s): 96995400, 596218705 Code(s): O36.8390 - MATERN CARE FOR ABNLT FETL HRT RATE OR RHYM, UNSP TRI, UNSP Status: Acute (4) S/P primary low transverse SNOMED Code(s): 065838543, 28166216, 187288807, 639595459, 251011319 Code(s): Z98.891 - HISTORY OF UTERINE SCAR FROM PREVIOUS SURGERY Status: Acute - Problem List Review Problem List Initiated/Reviewed/Updated: Yes - My Orders Last 24 Hours: My Active Orders 09/29/20 06:56 Ready for Discharge [RC] PER UNIT ROUTINE - Assessment Assessment:: POD#2 - Plan Plan:: Routine cares Will discharge today so patient can join her baby in [place] Follow up in 1-2 weeks for incision check Will use lantus 20 units bedtime on discharge. Will arrange follow up with diabetic educators and eventually refer on to Family medicine for terminal clerk follow up
[2020-09-29] MEDS: Docusate Sodium 100 MG Cap PO PRN (08:21)
== END 2020-09-29 08:05 | disposition home or self-care (01) | DRG 786 ==
LOC: JD.OBCHECK 15:09 → JD.OB 15:09 → JD.OBCHECK 16:27
PROVIDERS: ADMIT Obstetrics & Gynecology; ATTEND Obstetrics & Gynecology
PROC: 10D00Z1 Extraction of Products of Conception, Low, Open Approach (ICD-10-PCS; principal; 2020-09-27)
DX: O24.113 Pre-existing type 2 diabetes mellitus, in pregnancy, third trimester (principal); O60.14X0 Preterm labor third trimester with preterm delivery third trimester, not applicable or unspecified; Z37.0 Single live birth; Z3A.36 36 weeks gestation of pregnancy; O36.8330 Maternal care for abnormalities of the fetal heart rate or rhythm, third trimester, not applicable or unspecified; Z20.822 Contact with and (suspected) exposure to COVID-19
CPT/HCPCS: 01961; 36415; 59025; 76816; 76819; 76819-26; 80053; 82962; 85025; 86592; 86803; 86850; 86900; 86901; 94762; 99140; A9270-GY; J0690; J1200; J1815-GY; J1885; J2270; J2370; J2405; J2590; J2765; J3490; J7120; U0002

== ENCOUNTER 2023-01-12 06:12 | Inpatient (IN) | payer SELFPAY ==
[2023-01-12] MEDS ORDERED: Sodium Chloride 0.9% 10 ML Syringe FLUSH PRN (06:27)
[2023-01-12 06:40] LABS: BASOPHILS ABSOLUTE AUTO 0.04 K/mm3 (0.01-0.08); BASOPHILS PERCENT AUTO 0.2 % (0.1-1.2); EOSINOPHILS ABSOLUTE AUTO 0.01 K/mm3 (0.04-0.36); EOSINOPHILS PERCENT AUTO 0.1 (0.7-5.8); HEMATOCRIT 41.4 % (34.1-44.9); IMMATURE GRAN ABSOLUTE AUTO 0.04 K/mm3 (0.00-0.10); IMMATURE GRAN PERCENT AUTO 0.2 % (<=1.0); LYMPHOCYTES ABSOLUTE AUTO 1.88 K/mm3 (1.18-3.74); LYMPHOCYTES PERCENT AUTO 10.6 % (19.3-51.7); MEAN CORPUSCULAR HEMOGLOBIN 29.5 pg (25.6-32.2); MEAN CORPUSCULAR HGB CONC 34.3 g/dl (32.2-35.5); MEAN CORPUSCULAR VOLUME 85.9 fl (79.4-94.8); MEAN PLATELET VOLUME 11.8 fl (9.4-12.3); MONOCYTES ABSOLUTE AUTO 1.49 K/mm3 (0.24-0.36); MONOCYTES PERCENT AUTO 8.4 % (4.7-12.5); NEUTROPHILS PERCENT AUTO 80.5 % (34.0-71.1); PLATELET COUNT,PLT 178 K/mm3 (182-369); RED BLOOD CELL COUNT 4.82 M/mm3 (3.98-5.22); WHITE BLOOD CELL COUNT,WBC 17.66 K/mm3 (3.98-10.04)
[2023-01-12 06:44] LABS: HEMOGLOBIN 14.2 gm/dl (11.2-15.7)
[2023-01-12] MEDS ORDERED: Piperacillin/Tazobactam 4.5 GM in Sodium Chloride 0.9% 100 ML IV ONE (06:57)
[2023-01-12 06:59] LABS: A/G RATIO 0.8 (1-2); ALBUMIN 3.5 g/dl (3.4-5.0); ANION GAP 14.2 (5-15); BILIRUBIN TOTAL 0.9 mg/dL (0.2-1.0); BUN/CREATININE RATIO 3.3 (14-18); CALCIUM 8.7 mg/dL (8.5-10.1); CREATININE 0.9 mg/dL (0.55-1.02); EST CRCL DRUG DOSING (CG) 89.69 mL/min; POTASSIUM,K 3.2 mEq/L (3.5-5.1); PROTEIN TOTAL,TP 8.1 g/dl (6.4-8.2)
[2023-01-12] MEDS: Acetaminophen 325 MG Tab PO PRN ×3 (13:12→22:00)
[2023-01-12] MEDS: Heparin Sodium 5,000 Units/ML Vial SUBCUT SCH ×2 (13:13→21:59)
[2023-01-12] MEDS: Insulin Lispro 100 Unit/ML 3 ML KwikPen SUBCUT SCH (17:21)
[2023-01-12] MEDS: Insulin Glargine,Human Rec. Analog 100 Units/ML 3 ML Pen SUBCUT SCH (21:59)
[2023-01-12] MEDS: oxyCODONE 5 MG Tab PO PRN (23:50)
[2023-01-13] MEDS: Heparin Sodium 5,000 Units/ML Vial SUBCUT SCH ×3 (04:00→19:58)
[2023-01-13 05:25] LABS: BASOPHILS ABSOLUTE AUTO 0.03 K/mm3 (0.01-0.08); BASOPHILS PERCENT AUTO 0.2 % (0.1-1.2); EOSINOPHILS ABSOLUTE AUTO 0.02 K/mm3 (0.04-0.36); EOSINOPHILS PERCENT AUTO 0.1 (0.7-5.8); HEMATOCRIT 37.6 % (34.1-44.9); HEMOGLOBIN 12.8 gm/dl (11.2-15.7); IMMATURE GRAN ABSOLUTE AUTO 0.05 K/mm3 (0.00-0.10); IMMATURE GRAN PERCENT AUTO 0.3 % (<=1.0); LYMPHOCYTES ABSOLUTE AUTO 1.86 K/mm3 (1.18-3.74); LYMPHOCYTES PERCENT AUTO 11.5 % (19.3-51.7); MEAN CORPUSCULAR HEMOGLOBIN 29.3 pg (25.6-32.2); MONOCYTES ABSOLUTE AUTO 1.48 K/mm3 (0.24-0.36); MONOCYTES PERCENT AUTO 9.1 % (4.7-12.5); NEUTROPHILS ABSOLUTE AUTO 12.74 K/mm3 (1.56-6.13); NEUTROPHILS PERCENT AUTO 78.8 % (34.0-71.1); PLATELET COUNT,PLT 160 K/mm3 (182-369); RED BLOOD CELL COUNT 4.37 M/mm3 (3.98-5.22); WHITE BLOOD CELL COUNT,WBC 16.18 K/mm3 (3.98-10.04)
[2023-01-13 05:59] LABS: A/G RATIO 0.7 (1-2); ANION GAP 15.2 (5-15); BILIRUBIN TOTAL 0.5 mg/dL (0.2-1.0); BUN/CREATININE RATIO 5.3 (14-18); CALCIUM 8.5 mg/dL (8.5-10.1); CREATININE 1.5 mg/dL (0.55-1.02); EST CRCL DRUG DOSING (CG) 53.81 mL/min; POTASSIUM,K 3.2 mEq/L (3.5-5.1); PROTEIN TOTAL,TP 7.4 g/dl (6.4-8.2); VANCOMYCIN RANDOM 9.4 ug/mL
[2023-01-13] MEDS: Insulin Lispro 100 Unit/ML 3 ML KwikPen SUBCUT SCH ×3 (08:38→18:05)
[2023-01-13] MEDS ORDERED: Potassium Bicarbonate/Cit Ac 20 MEQ Effervescent Tab PO ONE (09:33)
[2023-01-13] MEDS: Acetaminophen 325 MG Tab PO PRN ×3 (11:32→21:39)
[2023-01-13] MEDS: Ondansetron 4 MG/2 ML SDV IVPUSH PRN (11:33)
[2023-01-13] MEDS: oxyCODONE 5 MG Tab PO PRN (19:57)
[2023-01-13] MEDS: Insulin Glargine,Human Rec. Analog 100 Units/ML 3 ML Pen SUBCUT SCH (21:27)
[2023-01-14] MEDS: oxyCODONE 5 MG Tab PO PRN ×2 (00:30→20:47)
[2023-01-14] MEDS: Heparin Sodium 5,000 Units/ML Vial SUBCUT SCH ×3 (04:30→20:56)
[2023-01-14 05:54] LABS: A/G RATIO 0.6 (1-2); ALBUMIN 2.9 g/dl (3.4-5.0); ANION GAP 13.3 (5-15); BILIRUBIN TOTAL 0.5 mg/dL (0.2-1.0); BUN/CREATININE RATIO 6.1 (14-18); CALCIUM 8.7 mg/dL (8.5-10.1); CREATININE 1.8 mg/dL (0.55-1.02); EST CRCL DRUG DOSING (CG) 44.85 mL/min; POTASSIUM,K 3.3 mEq/L (3.5-5.1); PROTEIN TOTAL,TP 7.4 g/dl (6.4-8.2); VANCOMYCIN RANDOM 7.6 ug/mL
[2023-01-14 05:57] LABS: BASOPHILS ABSOLUTE AUTO 0.04 K/mm3 (0.01-0.08); BASOPHILS PERCENT AUTO 0.3 % (0.1-1.2); EOSINOPHILS ABSOLUTE AUTO 0.03 K/mm3 (0.04-0.36); EOSINOPHILS PERCENT AUTO 0.2 (0.7-5.8); HEMATOCRIT 38.9 % (34.1-44.9); HEMOGLOBIN 12.9 gm/dl (11.2-15.7); IMMATURE GRAN ABSOLUTE AUTO 0.07 K/mm3 (0.00-0.10); IMMATURE GRAN PERCENT AUTO 0.4 % (<=1.0); LYMPHOCYTES ABSOLUTE AUTO 1.77 K/mm3 (1.18-3.74); LYMPHOCYTES PERCENT AUTO 11.4 % (19.3-51.7); MEAN CORPUSCULAR HEMOGLOBIN 28.9 pg (25.6-32.2); MEAN CORPUSCULAR HGB CONC 33.2 g/dl (32.2-35.5); MEAN CORPUSCULAR VOLUME 87.2 fl (79.4-94.8); MONOCYTES ABSOLUTE AUTO 1.54 K/mm3 (0.24-0.36); MONOCYTES PERCENT AUTO 9.9 % (4.7-12.5); NEUTROPHILS ABSOLUTE AUTO 12.12 K/mm3 (1.56-6.13); NEUTROPHILS PERCENT AUTO 77.8 % (34.0-71.1); PLATELET COUNT,PLT 174 K/mm3 (182-369); RED BLOOD CELL COUNT 4.46 M/mm3 (3.98-5.22); WHITE BLOOD CELL COUNT,WBC 15.57 K/mm3 (3.98-10.04)
[2023-01-14 06:32] LABS: SLIDE REVIEW NORMAL SMEAR
[2023-01-14] MEDS: Insulin Lispro 100 Unit/ML 3 ML KwikPen SUBCUT SCH ×3 (08:21→18:00)
[2023-01-14] MEDS: Clindamycin Phosphate in D5W 900 MG in Premix Bag 1 BAG IV SCH ×4 (11:05→20:48)
[2023-01-14] MEDS: Linezolid 600 MG in Premix Bag 1 BAG IV SCH ×2 (11:36→22:15)
[2023-01-14] MEDS ORDERED: Iopamidol 612 MG/ML 30 ML SDV IVPUSH ONE ×3 (12:26)
[2023-01-14] MEDS ORDERED: Iopamidol 612 MG/ML 100 ML Bottle IVPUSH ONE ×2 (13:04→14:37)
[2023-01-14] MEDS: Insulin Glargine,Human Rec. Analog 100 Units/ML 3 ML Pen SUBCUT SCH (20:55)
[2023-01-15] MEDS: Clindamycin Phosphate in D5W 900 MG in Premix Bag 1 BAG IV SCH ×8 (04:52→22:37)
[2023-01-15] MEDS: Heparin Sodium 5,000 Units/ML Vial SUBCUT SCH ×3 (04:52→21:06)
[2023-01-15 06:10] LABS: BASOPHILS ABSOLUTE AUTO 0.04 K/mm3 (0.01-0.08); BASOPHILS PERCENT AUTO 0.3 % (0.1-1.2); EOSINOPHILS ABSOLUTE AUTO 0.03 K/mm3 (0.04-0.36); EOSINOPHILS PERCENT AUTO 0.2 (0.7-5.8); HEMATOCRIT 35.5 % (34.1-44.9); HEMOGLOBIN 11.9 gm/dl (11.2-15.7); IMMATURE GRAN ABSOLUTE AUTO 0.08 K/mm3 (0.00-0.10); IMMATURE GRAN PERCENT AUTO 0.5 % (<=1.0); LYMPHOCYTES ABSOLUTE AUTO 1.56 K/mm3 (1.18-3.74); LYMPHOCYTES PERCENT AUTO 10.7 % (19.3-51.7); MEAN CORPUSCULAR HEMOGLOBIN 29.2 pg (25.6-32.2); MEAN CORPUSCULAR HGB CONC 33.5 g/dl (32.2-35.5); MEAN CORPUSCULAR VOLUME 87.2 fl (79.4-94.8); MEAN PLATELET VOLUME 12.1 fl (9.4-12.3); MONOCYTES ABSOLUTE AUTO 1.48 K/mm3 (0.24-0.36); MONOCYTES PERCENT AUTO 10.2 % (4.7-12.5); NEUTROPHILS ABSOLUTE AUTO 11.37 K/mm3 (1.56-6.13); NEUTROPHILS PERCENT AUTO 78.1 % (34.0-71.1); PLATELET COUNT,PLT 206 K/mm3 (182-369); RED BLOOD CELL COUNT 4.07 M/mm3 (3.98-5.22); WHITE BLOOD CELL COUNT,WBC 14.56 K/mm3 (3.98-10.04)
[2023-01-15 06:32] LABS: BUN/CREATININE RATIO 7.1 (14-18); CALCIUM 8.4 mg/dL (8.5-10.1); CREATININE 1.7 mg/dL (0.55-1.02); EST CRCL DRUG DOSING (CG) 47.48 mL/min
[2023-01-15 07:10] LABS: C-REACTIVE PROTEIN 27.5 mg/dL (<1.0)
[2023-01-15 07:20] LABS: HEMOGLOBIN A1C 6.7 %
[2023-01-15] MEDS: Insulin Lispro 100 Unit/ML 3 ML KwikPen SUBCUT SCH ×3 (07:59→17:26)
[2023-01-15] MEDS: Linezolid 600 MG in Premix Bag 1 BAG IV SCH ×2 (11:10→23:09)
[2023-01-15] MEDS: Docusate Sodium 100 MG Cap PO PRN (17:25)
[2023-01-15] MEDS: Insulin Glargine,Human Rec. Analog 100 Units/ML 3 ML Pen SUBCUT SCH (21:06)
[2023-01-15] MEDS: Acetaminophen 325 MG Tab PO PRN (21:13)
[2023-01-15] MEDS ORDERED: Sodium Chloride 0.9% 500 ML IV SCH (22:00)
[2023-01-16] MEDS: Clindamycin Phosphate in D5W 900 MG in Premix Bag 1 BAG IV SCH ×6 (05:31→20:40)
[2023-01-16] MEDS: Heparin Sodium 5,000 Units/ML Vial SUBCUT SCH ×3 (05:31→20:41)
[2023-01-16 05:46] LABS: BASOPHILS ABSOLUTE AUTO 0.04 K/mm3 (0.01-0.08); BASOPHILS PERCENT AUTO 0.5 % (0.1-1.2); EOSINOPHILS ABSOLUTE AUTO 0.09 K/mm3 (0.04-0.36); HEMATOCRIT 36.4 % (34.1-44.9); HEMOGLOBIN 12.1 gm/dl (11.2-15.7); IMMATURE GRAN ABSOLUTE AUTO 0.16 K/mm3 (0.00-0.10); IMMATURE GRAN PERCENT AUTO 1.9 % (<=1.0); LYMPHOCYTES ABSOLUTE AUTO 1.65 K/mm3 (1.18-3.74); LYMPHOCYTES PERCENT AUTO 19.2 % (19.3-51.7); MEAN CORPUSCULAR HEMOGLOBIN 28.9 pg (25.6-32.2); MEAN CORPUSCULAR HGB CONC 33.2 g/dl (32.2-35.5); MEAN CORPUSCULAR VOLUME 86.9 fl (79.4-94.8); MEAN PLATELET VOLUME 11.6 fl (9.4-12.3); MONOCYTES ABSOLUTE AUTO 1.02 K/mm3 (0.24-0.36); MONOCYTES PERCENT AUTO 11.8 % (4.7-12.5); NEUTROPHILS ABSOLUTE AUTO 5.65 K/mm3 (1.56-6.13); NEUTROPHILS PERCENT AUTO 65.6 % (34.0-71.1); PLATELET COUNT,PLT 211 K/mm3 (182-369); RED BLOOD CELL COUNT 4.19 M/mm3 (3.98-5.22); WHITE BLOOD CELL COUNT,WBC 8.61 K/mm3 (3.98-10.04)
[2023-01-16 06:15] LABS: A/G RATIO 0.6 (1-2); ALBUMIN 2.7 g/dl (3.4-5.0); ANION GAP 13.8 (5-15); BILIRUBIN TOTAL 0.2 mg/dL (0.2-1.0); BUN/CREATININE RATIO 9.3 (14-18); CALCIUM 8.5 mg/dL (8.5-10.1); CREATININE 1.5 mg/dL (0.55-1.02); EST CRCL DRUG DOSING (CG) 53.81 mL/min; POTASSIUM,K 2.8 mEq/L (3.5-5.1); PROTEIN TOTAL,TP 7.1 g/dl (6.4-8.2)
[2023-01-16] MEDS: Insulin Lispro 100 Unit/ML 3 ML KwikPen SUBCUT SCH ×3 (08:30→18:37)
[2023-01-16] MEDS: Potassium Chloride 10 MEQ in Premix Bag 1 BAG IV SCH ×4 (08:30→13:08)
[2023-01-16] MEDS ORDERED: Lidocaine 1% 30 ML SDV ONE (08:33)
[2023-01-16] MEDS ORDERED: Bupivacaine 0.5%/EPINEPHrine 1:200,000 50 ML MDV ONE (08:33)
[2023-01-16] MEDS ORDERED: Midazolam 1 MG/ML 2 ML SDV ONE (10:28)
[2023-01-16] MEDS ORDERED: Propofol 200 MG/20 ML SDV ONE ×2 (10:29→11:16)
[2023-01-16] MEDS ORDERED: fentaNYL 100 MCG/2 ML SDV ONE (10:29)
[2023-01-16] MEDS ORDERED: Lidocaine 1% 6 ML ONE (10:29)
[2023-01-16] MEDS ORDERED: Metoclopramide 10 MG/2 ML SDV ONE (10:38)
[2023-01-16] MEDS ORDERED: Famotidine 20 MG/2 ML SDV ONE (10:42)
[2023-01-16] MEDS ORDERED: Ketamine 500 mg/10 ML MDV ONE (11:23)
[2023-01-16] MEDS ORDERED: Ondansetron 4 MG/2 ML SDV ONE (11:33)
[2023-01-16] MEDS ORDERED: Naloxone 0.4 MG/ML SDV IVPUSH PRN (12:23)
[2023-01-16] MEDS ORDERED: HYDROmorphone 0.5 MG/0.5 ML Syringe IVPUSH PRN (12:23)
[2023-01-16] MEDS: oxyCODONE 5 MG Tab PO PRN ×2 (12:29→16:33)
[2023-01-16] MEDS: Linezolid 600 MG in Premix Bag 1 BAG IV SCH ×2 (12:30→23:13)
[2023-01-16] MEDS: Acetaminophen/HYDROcodone 325-5 MG Tab PO PRN ×2 (14:08→22:51)
[2023-01-16] MEDS: Acetaminophen 325 MG Tab PO PRN (16:18)
[2023-01-16] MEDS: Ondansetron 4 MG/2 ML SDV IVPUSH PRN (19:46)
[2023-01-16] MEDS: Insulin Glargine,Human Rec. Analog 100 Units/ML 3 ML Pen SUBCUT SCH (20:40)
[2023-01-17] MEDS: Clindamycin Phosphate in D5W 900 MG in Premix Bag 1 BAG IV SCH ×8 (00:16→21:22)
[2023-01-17] MEDS: Heparin Sodium 5,000 Units/ML Vial SUBCUT SCH ×3 (05:10→20:08)
[2023-01-17] MEDS: Acetaminophen/HYDROcodone 325-5 MG Tab PO PRN ×3 (07:29→21:21)
[2023-01-17] MEDS: Docusate Sodium 100 MG Cap PO PRN (07:29)
[2023-01-17] MEDS: Insulin Lispro 100 Unit/ML 3 ML KwikPen SUBCUT SCH ×3 (07:30→18:54)
[2023-01-17] MEDS: Linezolid 600 MG in Premix Bag 1 BAG IV SCH ×2 (11:12→22:47)
[2023-01-17] MEDS: Acetaminophen 325 MG Tab PO PRN (14:29)
[2023-01-17] MEDS: Insulin Glargine,Human Rec. Analog 100 Units/ML 3 ML Pen SUBCUT SCH (20:18)
[2023-01-18] MEDS: Acetaminophen/HYDROcodone 325-5 MG Tab PO PRN ×3 (01:33→11:13)
[2023-01-18] MEDS: Clindamycin Phosphate in D5W 900 MG in Premix Bag 1 BAG IV SCH ×2 (05:21)
[2023-01-18] MEDS: Heparin Sodium 5,000 Units/ML Vial SUBCUT SCH ×2 (05:21→12:27)
[2023-01-18 05:25] LABS: BASOPHILS ABSOLUTE AUTO 0.04 K/mm3 (0.01-0.08); BASOPHILS PERCENT AUTO 0.6 % (0.1-1.2); EOSINOPHILS ABSOLUTE AUTO 0.14 K/mm3 (0.04-0.36); HEMATOCRIT 34.6 % (34.1-44.9); HEMOGLOBIN 11.4 gm/dl (11.2-15.7); IMMATURE GRAN ABSOLUTE AUTO 0.24 K/mm3 (0.00-0.10); IMMATURE GRAN PERCENT AUTO 3.5 % (<=1.0); LYMPHOCYTES ABSOLUTE AUTO 1.58 K/mm3 (1.18-3.74); LYMPHOCYTES PERCENT AUTO 22.7 % (19.3-51.7); MEAN CORPUSCULAR HEMOGLOBIN 29.1 pg (25.6-32.2); MEAN CORPUSCULAR HGB CONC 32.9 g/dl (32.2-35.5); MEAN CORPUSCULAR VOLUME 88.3 fl (79.4-94.8); MEAN PLATELET VOLUME 11.5 fl (9.4-12.3); MONOCYTES ABSOLUTE AUTO 0.84 K/mm3 (0.24-0.36); MONOCYTES PERCENT AUTO 12.1 % (4.7-12.5); NEUTROPHILS ABSOLUTE AUTO 4.11 K/mm3 (1.56-6.13); NEUTROPHILS PERCENT AUTO 59.1 % (34.0-71.1); PLATELET COUNT,PLT 230 K/mm3 (182-369); RED BLOOD CELL COUNT 3.92 M/mm3 (3.98-5.22); WHITE BLOOD CELL COUNT,WBC 6.95 K/mm3 (3.98-10.04)
[2023-01-18 06:16] LABS: A/G RATIO 0.7 (1-2); ALBUMIN 2.7 g/dl (3.4-5.0); ANION GAP 12.2 (5-15); BILIRUBIN TOTAL 0.2 mg/dL (0.2-1.0); BUN/CREATININE RATIO 5.7 (14-18); CALCIUM 8.3 mg/dL (8.5-10.1); CREATININE 1.4 mg/dL (0.55-1.02); EST CRCL DRUG DOSING (CG) 57.66 mL/min; POTASSIUM,K 3.2 mEq/L (3.5-5.1); PROTEIN TOTAL,TP 6.7 g/dl (6.4-8.2)
[2023-01-18] MEDS: Insulin Lispro 100 Unit/ML 3 ML KwikPen SUBCUT SCH ×2 (07:49→12:27)
[2023-01-18] MEDS ORDERED: Potassium Bicarbonate/Cit Ac 20 MEQ Effervescent Tab PO ONE (09:00)
[2023-01-18] MEDS: Linezolid 600 MG in Premix Bag 1 BAG IV SCH (11:09)
[2023-01-18] MEDS: Docusate Sodium 100 MG Cap PO PRN (11:13)
== END 2023-01-18 14:03 | disposition home or self-care (01) | DRG 623 ==
LOC: JD.ED 06:12 → JD.MS 10:38
PROVIDERS: ADMIT Internal Medicine; ATTEND Internal Medicine
PROC: 0JB70ZZ Excision of Back Subcutaneous Tissue and Fascia, Open Approach (ICD-10-PCS; principal; 2023-01-16)
DX: E11.628 Type 2 diabetes mellitus with other skin complications (principal); E87.1 Hypo-osmolality and hyponatremia; L03.312 Cellulitis of back [any part except buttock and flank]; L02.211 Cutaneous abscess of abdominal wall; B95.62 Methicillin resistant Staphylococcus aureus infection as the cause of diseases classified elsewhere; F32.A Depression, unspecified; D72.829 Elevated white blood cell count, unspecified; E87.6 Hypokalemia; Z79.4 Long term (current) use of insulin; Z79.899 Other long term (current) drug therapy; Z90.49 Acquired absence of other specified parts of digestive tract; Z90.89 Acquired absence of other organs; Z98.890 Other specified postprocedural states
CPT/HCPCS: 00300; 36415; 74177; 74177-26; 80048; 80053; 80202; 82947; 83036; 83605; 84703; 85025; 86140; 87040; 87070; 87075; 87077; 87186; 87205; 96365; 96367; 99284; 99285-25; A9270-GY; J1644; J1815; J1815-GY; J2020; J2250; J2405; J2543; J2704; J2765; J3010; J3370; J3480; J3490; J7030; J7050; Q9967